=== PATIENT | female | born 1965 | race African-American/Black ===

== ENCOUNTER 2021-01-23 08:07 | Day surgery (SDC) | payer OTHER ==
[2021-01-23 08:52] LABS: Urine Appearance CLEAR (Clear); Urine Bilirubin NEGATIVE (Negative); Urine Blood NEGATIVE (Negative); Urine Color YELLOW (Yellow); Urine Glucose NEGATIVE (Negative); Urine Protein NEGATIVE (Negative); Urine Urobilinogen 0.2 mg/dL (0.2-1.0); Urine pH 6.5 (5.0-7.0)
[2021-01-23 08:58] LABS: Urine Microscopic Reflex NO UMIC
[2021-01-23 09:03] LABS: Absolute Lymphocytes (CBC) 2.2 K/uL (0.7-4.9); Basophils % 0.6 % (0-1.3); Hematocrit 42.8 % (36.0-45.0); Lymphocytes % 51.8 % (15.3-44.8); MPV 10.5 fL (7.6-11.3); RBC Red Blood Cell Count 4.52 M/uL (3.86-4.86)
[2021-01-23] MEDS ORDERED: SCOPOLAMINE HYDROBROMIDE PATCH TD ONE (09:04)
[2021-01-23] MEDS ORDERED: Ringers Lactate 1,000 ML IV ONE ×2 (09:04→09:17)
[2021-01-23] MEDS ORDERED: propofoL 200 MG/20 ML VIAL IV ONE ×2 (09:07→11:51)
[2021-01-23] MEDS ORDERED: MIDAZOLAM HCL 2 MG/2 ML INJ ONE ×3 (09:07→11:51)
[2021-01-23] MEDS ORDERED: FENTANYL CITR 100 MCG/2 ML ONE ×2 (09:07→11:51)
[2021-01-23] MEDS ORDERED: dexAMETHasone 10 MG/ML VIAL ONE ×2 (09:08→11:51)
[2021-01-23] MEDS ORDERED: LIDOCAINE 2% MPF 5 ML VIAL ONE ×2 (09:09→11:51)
[2021-01-23] MEDS ORDERED: NS 0.9% VIAL 10 ML ONE ×3 (09:09→13:49)
[2021-01-23] MEDS ORDERED: KETOROLAC 30 MG/ML INJ ONE ×2 (09:09→11:51)
[2021-01-23] MEDS ORDERED: ROCURONIUM 50 MG/5 ML VIAL IV ONE ×2 (09:09→11:51)
[2021-01-23] MEDS ORDERED: VECURONIUM 10 MG/VIAL IV ONE ×2 (09:10→11:51)
[2021-01-23] MEDS ORDERED: ONDANSETRON 4 MG/2 ML VIAL ONE ×2 (09:10→11:51)
[2021-01-23] MEDS ORDERED: NS 0.9% VIAL 30 ML ONE (09:16)
[2021-01-23] MEDS ORDERED: CEFAZOLIN SODIUM 1 GM/VIAL ONE (09:16)
[2021-01-23] MEDS ORDERED: GENTAMICIN SULF 80 MG/2ML INJ ONE (09:16)
[2021-01-23] MEDS ORDERED: BACITRACIN 50000 UNIT VIAL ONE (09:17)
[2021-01-23] MEDS ORDERED: Mastisol Adhesive Liq ONE (09:17)
[2021-01-23] MEDS ORDERED: LIDOCAINE 1% W/EPI 1:100,000 MDV 20 ML VIAL ONE (09:17)
[2021-01-23] MEDS ORDERED: CEFAZOLIN/SWI 1gm 1 GM/10 ML SYR ONE (09:22)
--- NOTE | 2021-01-23 09:26 | RAD REPORT ---
EXAM DESCRIPTION: RAD - Chest Pa And Lat (2 Views) - 01/23/2021 8:06 am CLINICAL HISTORY: preop Chest pain. COMPARISON: No comparisons FINDINGS: The lungs are clear. The heart is normal in size. No displaced fractures. IMPRESSION: No acute or concerning finding suspected.
[2021-01-23 09:44] LABS: Blood Morphology Comment NOT SEEN (NOT SEEN); Platelet Estimate ADEQ
[2021-01-23] MEDS ORDERED: MORPHINE 10 MG/ML VIAL ONE (13:49)
[2021-01-23] MEDS ORDERED: GLYCOPYRROLATE 0.2 MG/ML SYR ONE (15:10)
[2021-01-23] MEDS ORDERED: NEOSTIGMINE 1 MG/ML -5 ML ONE (15:57)
[2021-01-23 16:07] VITALS: O2SAT 95
[2021-01-23] MEDS ORDERED: HYDROCODONE/APAP 7.5/325 MG TAB ONE (16:51)
[2021-01-23 16:56] VITALS: BP 131/87; TEMP 97.2
--- NOTE | 2021-01-24 02:06 | OP ---
Surgeon: Donald Retana MD Preoperative Diagnosis: Breast descent. Postoperative Diagnosis: Breast descent. Procedure Performed: Breast reduction and lift. Anesthesia: General. Description Of Procedure: After satisfactory anesthesia, chest was prepped with DuraPrep, dry steril e drapes applied in the usual manner. A 5 cm template was used to outline the right and left areolas . Then incision was made with 15 blade. Then a transverse curvilinear incision was made. Interveni ng skin was de-epithelialized with dermabrader scissors. Next, transverse incision was ma de with electrocautery. Flaps were elevated towards the sternum, clavicle, anterior axillary line. Dissection was proceeded down to the fascia, and then the inferior incision was made. Then, the deep ithelialized tissue was rotated in the cone after excess tissue was removed laterally. Conization wa s performed with 2-0 PDS sutures. Right breast straps were elevated at 12 o'clock, 1:30 and 3 o'cloc k position. The straps were then woven in and out of the pectoralis major muscle back to base of the cone, tied to themselves with 2-0 PDS. This was done with the 12 o'clock and 1:30 straps. 3 o'cloc k strap was sewn at 3 o'clock position with 2-0 Ethibond. The wound was kept in sterile shape. The left side was done in mirror-image manner. We then returned to right side. Irrigated the wound with antibiotic solution. We excised dog ears medially and laterally breast tissue asymmetry and 10 CAYETANO was brought out of axilla. Wound was closed with 3-0 Vicryl subcutaneous, 3-0 PDS running, tied from medial to lateral, lateral to medial, tied in vertical meridian of the breast. Left side was done in a mirror-image manner. The patient was sat up. Site for new nipple-areolar complex was marked out. Tissue was cored out with a 5 cm template and sewn with 4-0 PDS interrupted, followed by 4-0 PDS running subcuticular. Dressings of tincture of benzoin, Steri-Strips, followed by Esmarch, fluffs and Artur wrap. The patient tolerated procedure well. 282 g from the right, 106 g from left neck. GH/MODL Voice ID: [id number] Report ID: [id number]
== END 2021-01-23 17:34 | disposition home or self-care (01) ==
LOC: OR 08:07
PROVIDERS: ATTEND Specialist
PROC: 0HSV0ZZ Reposition Bilateral Breast, Open Approach (ICD-10-PCS; principal; 2021-01-23 09:00)
DX: N64.81 Ptosis of breast (principal); Z20.822 Contact with and (suspected) exposure to COVID-19
CPT/HCPCS: 93005; 85025; 36415; 88305; 81003; 71046; 19316; U0003; J2704; J1580; J2250 ×2; J3010; J1100; J2710; J0690 ×2; J7120 ×2; J2405

== ENCOUNTER 2021-02-26 07:40 | Inpatient (IN) | payer OTHER ==
[2021-02-26] MEDS ORDERED: ROCURONIUM 50 MG/5 ML VIAL IV ONE (08:33)
[2021-02-26] MEDS ORDERED: MIDAZOLAM HCL 2 MG/2 ML INJ ONE (08:33)
[2021-02-26] MEDS ORDERED: dexAMETHasone 10 MG/ML VIAL ONE (08:33)
[2021-02-26] MEDS ORDERED: LIDOCAINE 2% MPF 5 ML VIAL ONE (08:33)
[2021-02-26] MEDS ORDERED: propofoL 200 MG/20 ML VIAL IV ONE (08:33)
[2021-02-26] MEDS ORDERED: KETAMINE HCL 500 MG/5 ML VIAL ONE (08:33)
[2021-02-26] MEDS ORDERED: FENTANYL CITR 250 MCG/5 ML ONE (08:33)
[2021-02-26] MEDS ORDERED: NS 0.9% VIAL 10 ML ONE ×2 (08:33→09:14)
[2021-02-26] MEDS ORDERED: ONDANSETRON 4 MG/2 ML VIAL ONE (08:34)
[2021-02-26] MEDS ORDERED: Ringers Lactate 1,000 ML IV ONE ×3 (08:39→12:16)
[2021-02-26] MEDS ORDERED: SCOPOLAMINE HYDROBROMIDE PATCH TD ONE (08:40)
[2021-02-26] MEDS ORDERED: CEFAZOLIN/SWI 1gm 1 GM/10 ML SYR ONE (08:40)
[2021-02-26] MEDS ORDERED: Mastisol Adhesive Liq ONE (09:15)
[2021-02-26] MEDS ORDERED: VECURONIUM 10 MG/VIAL IV ONE (10:16)
[2021-02-26] MEDS ORDERED: KETOROLAC 30 MG/ML INJ ONE (12:36)
[2021-02-26] MEDS ORDERED: GLYCOPYRROLATE 0.2 MG/ML SYR ONE (12:41)
[2021-02-26] MEDS ORDERED: NEOSTIGMINE 1 MG/ML -5 ML ONE (12:44)
[2021-02-26] MEDS ORDERED: MORPHINE 10 MG/ML VIAL ONE (12:49)
[2021-02-26] MEDS ORDERED: MEPERIDINE HCL 50 MG/ML IM PRN (12:49)
[2021-02-26 14:00] VITALS: O2SAT 96
[2021-02-26] MEDS ORDERED: CEFAZOLIN/SWI 1gm 1 GM/10 ML SYR IV SCH (15:00)
[2021-02-26] MEDS: D5LR 1,000 ML IV SCH ×3 (15:05→22:59)
[2021-02-26 16:38] VITALS: BMI 25.7
[2021-02-26] MEDS: CEFAZOLIN/SWI 1gm 1 GM/10 ML SYR IV SCH (17:00)
[2021-02-26] MEDS: MORPHINE 4 MG/ML SYR IV PRN (19:34)
[2021-02-27] MEDS: CEFAZOLIN/SWI 1gm 1 GM/10 ML SYR IV SCH ×2 (01:12→09:31)
[2021-02-27] MEDS: MORPHINE 4 MG/ML SYR IV PRN ×2 (01:17→07:24)
[2021-02-27] MEDS: D5LR 1,000 ML IV SCH (05:00)
[2021-02-27 12:14] VITALS: BP 155/95; TEMP 98.4
--- NOTE | 2021-02-28 10:06 | OP ---
Surgeon: Donald Retana MD Preoperative Diagnosis: Abdominal lipodystrophy. Postoperative Diagnosis: Abdominal lipodystrophy. Procedure Performed: Abdominoplasty with mesh reinforcement. Anesthesia: General. Procedure In Detail: After satisfactory induction of general anesthesia, abdomen was prepped with Du raPrep, dry sterile drapes were applied in the usual manner. A felt-tip marking pen was used to outl ine the curvilinear inferior incision from lateral to the anterior iliac spine to the opposite side _ proceeded down to the fascia. Flap was elevated toward the umbilicus. Elliptical incision was made around the umbilicus and the flaps were elevated towards the sternum and clavicle _ towards the sternum and costal margin. After this was done, the patient then underwent bilateral l ateral plication. #1 Prolene running was used for 7 cm lateral to the vertical meridian of the anter ior iliac spine on both sides. Then the midline was pulled together approximately 1 to 2 cm __ midline with interrupted 0 Prolene buried knots. After this was done, a sheet of Rossy x mesh was laid over the wound, cut in the shape, and then sewn with a running suture from anterior i liac spine to pubic tubercle, then pubic tubercle , then from supraumbilical out to the ant erior iliac spine bilaterally. Incision was made with a scalpel along the umbilicus hernia through a nd then the excess skin was cut off and the flap was thinned to approximately 2 to 3 cm thick. Then, electrocautery was used for hemostasis. Incision was made for the new umbilicus. Wound was closed with 3-0 Vicryl Regan's fascia and 3-0 Prolene simple sutures on the umbilicus. Then the patient had JPs brought out bilaterally sewn in place with 2-0 silk and the wound was samira sed with 3-0 Vicryl subcutaneous, then 3-0 PDS running subcuticular tied from lateral to medial and t hen tied in the midline. Tincture of benzoin, Steri-Strips, 4x4s, . The amount of tissue removed, the right abdomen was 532, left abdomen was 520. Then additional thinning of the flaps, too k off additional 282 g 334. The patient tolerated procedure well and returned to Recovery . TEJINDER/ANA LUISA Voice ID: [id number] Report ID: [id number]
== END 2021-02-27 13:30 | disposition home or self-care (01) | DRG 572 ==
LOC: OR 07:40 → 2ND 12:48 → OBSVTOIN 17:00
PROVIDERS: ADMIT Specialist; ATTEND Specialist
PROC: 0JB80ZZ Excision of Abdomen Subcutaneous Tissue and Fascia, Open Approach (ICD-10-PCS; principal; 2021-02-26 09:00)
DX: L98.7 Excessive and redundant skin and subcutaneous tissue (principal); I10 Essential (primary) hypertension; E03.9 Hypothyroidism, unspecified
CPT/HCPCS: 94010; G0378; G0379; J0690; J1100; J2175; J2250; J2405; J2704; J2710; J3010; J7120; J7121